=== PATIENT | female | born 1995 | race Caucasian/White ===

== ENCOUNTER 2017-07-11 15:29 | Emergency (ER) | payer OTHER ==
[2017-07-11 15:35] VITALS: BP 123/85; BMI 23.0
[2017-07-11 16:20] LABS: AMNISURE ROM TEST NO MEMBRANES RUPTURE (NO RUPTURE); BILIRUBIN,URINE NEGATIVE (NEGATIVE); BLOOD/HEMOGLOBIN,URINE 1+ (NEGATIVE); GLUCOSE, URINE NEGATIVE (NEGATIVE); KETONES,URINE NEGATIVE (NEGATIVE); LEUKOCYTE ESTERASE ,URINE 1+ (NEGATIVE); NITRITES,URINE NEGATIVE (NEGATIVE); PROTEIN,URINE 2+ (NEGATIVE); UROBILINOGEN,URINE 1+ (NORMAL)
[2017-07-11 16:21] LABS: APPEARANCE,URINE CLOUDY (CLEAR); COLOR,URINE YELLOW (YELLOW)
[2017-07-11 16:29] LABS: AMORPHOUS SEDIMENT,UR 2+ /HPF (NEGATIVE); BACTERIA,URINE 3+ /HPF (NEGATIVE); MUCUS,URINE MODERATE /HPF (NEGATIVE); RBC,URINE 0 - 4 /HPF (NEGATIVE); SQUAMOUS EPITHELIAL CELL,UR NUMEROUS /HPF (NEGATIVE)
[2017-07-11] MEDS ORDERED: NS 1000 ML 1,000 ML ONE (16:56)
[2017-07-11 17:05] LABS: BILIRUBIN,URINE NEGATIVE (NEGATIVE); BLOOD/HEMOGLOBIN,URINE NEGATIVE (NEGATIVE); GLUCOSE, URINE NEGATIVE (NEGATIVE); KETONES,URINE NEGATIVE (NEGATIVE); LEUKOCYTE ESTERASE ,URINE NEGATIVE (NEGATIVE); NITRITES,URINE NEGATIVE (NEGATIVE); PROTEIN,URINE NEGATIVE (NEGATIVE); UROBILINOGEN,URINE NORMAL (NORMAL)
[2017-07-11] MEDS ORDERED: NS 1000 ML 1,000 ML IV ONE (17:05)
[2017-07-11 17:14] LABS: APPEARANCE,URINE SLIGHTLY HAZY (CLEAR); COLOR,URINE YELLOW (YELLOW)
[2017-07-11 17:27] LABS: AMORPHOUS SEDIMENT,UR TRACE /HPF (NEGATIVE); BACTERIA,URINE TRACE /HPF (NEGATIVE); HYALINE CASTS, URINE RARE /LPF (NEGATIVE); RBC,URINE RARE /HPF (NEGATIVE); SQUAMOUS EPITHELIAL CELL,UR FEW /HPF (NEGATIVE)
--- NOTE | 2017-07-13 12:48 | DR.PREG ---
HPI - PCP Primary Care Physician: NAKUL - Chief Complaint Chief Complaint:: CONTRACTIONS - Source History Provided: Patient - Mode of Arrival Mode of Arrival: Ambulatory - Timing Onset of Chief Complaint: 07/11/17 PMH - PMH Past Medical History: Yes Past Medical History Comment: MISCARRIAGE AT 18 WEEKS WITH PRIOR Past Surgical History: Yes Past Surgical History Comment: ORAL SURGERY - Family History History of Family Medical Conditions: No Family Medical History: Coronary Artery Disease - Social History Does patient currently use any type of tobacco product: No Have you used tobacco products in the last 12 months: No Type of Tobacco Use: None Does any household member use tobacco: No Alcohol Use: None Do you use any recreational Drugs:: No Lives With: Family Lives Where: Home - infectious screening In the last 2 months have you had wt loss of >10#?: NO Have you had fever, night sweats or hemotysis?: No Have you traveled outside the country in the last 6 months?: No Isolation: Standard PE - Vital Signs Vitals: Temperature 98.2 F Pulse Rate 100 Respiratory Rate 20 Blood Pressure [Left Arm] 132/77 Blood Pressure 123/85 O2 Sat by Pulse Oximetry 98 ROR - Labs Reviewed Laboratory: Specimen Type Clean catch urine 07/11/17 16:53 Urine Color Yellow (YELLOW) 07/11/17 16:53 Urine Appearance Slightly hazy (CLEAR) 07/11/17 16:53 Urine pH 7.0 (5.0 - 8.0) 07/11/17 16:53 Ur Specific [place] 1.005 (1.000-1.030) 07/11/17 16:53 Urine Protein Negative (NEGATIVE) 07/11/17 16:53 Urine Glucose (UA) Negative (NEGATIVE) 07/11/17 16:53 Urine Ketones Negative (NEGATIVE) 07/11/17 16:53 Urine Occult Blood Negative (NEGATIVE) 07/11/17 16:53 Urine Nitrite Negative (NEGATIVE) 07/11/17 16:53 Urine Bilirubin Negative (NEGATIVE) 07/11/17 16:53 Urine Urobilinogen Normal (NORMAL) 07/11/17 16:53 Ur Leukocyte Esterase Negative (NEGATIVE) 07/11/17 16:53 Urine RBC Rare /HPF (NEGATIVE) 07/11/17 16:53 Urine WBC 0 - 2 /HPF (NEGATIVE) 07/11/17 16:53 Ur Squamous Epith Cells Few /HPF (NEGATIVE) 07/11/17 16:53 Amorphous Sediment Trace /HPF (NEGATIVE) 07/11/17 16:53 Urine Bacteria Trace /HPF (NEGATIVE) 07/11/17 16:53 Hyaline Casts Rare /LPF (NEGATIVE) 07/11/17 16:53 Urine Mucus Moderate /HPF (NEGATIVE) 07/11/17 15:35 Ur Culture Indicated? No/not indicated 07/11/17 16:53 Placental [id number] No membranes rupture (NO RUPTURE) 07/11/17 15:35 - Discharge Plan Disposition: 01 HOME, SELF-CARE Condition: Stable Prescriptions: Nitrofurantoin Macro [Macrobid Cap 100 mg Ext Rel] 100 mg PO BID #14 cap - Follow ups/Referrals Follow ups/Referrals: Jose Thompson [Primary Care Provider] - 3 days - Instructions Instructions: Victor Manuel Kowalski Contractions, and Urinary Tract Infection , Abdominal Pain During Additional Instructions: RETURN TO ER IN [place] IF CONTRACTIONS ARE GREATER THAN 6 PER HOUR OR INCREASE IN PAIN. RETURN TO ER IF WATER BREAKS OR BLEEDING OCCURS. MAINTAIN PELVIC REST AND KEEP FOLLOW UP APPOINTMENTS WITH DR. THOMPSON AND HOME HEALTH NURSES.
== END 2017-07-11 17:53 | disposition home or self-care (01) ==
LOC: ER 15:45
DX: O60.02 Preterm labor without delivery, second trimester (principal)
CPT/HCPCS: 81001; 84112; 96365; 99284

== ENCOUNTER 2017-08-30 01:38 | Emergency (ER) | payer OTHER ==
[2017-08-30 01:54] VITALS: BMI 25.2
[2017-08-30 02:37] LABS: APPEARANCE,URINE CLEAR (CLEAR); BLOOD/HEMOGLOBIN,URINE NEGATIVE (NEGATIVE); COLOR,URINE YELLOW (YELLOW); GLUCOSE, URINE NEGATIVE (NEGATIVE); KETONES,URINE NEGATIVE (NEGATIVE); NITRITES,URINE NEGATIVE (NEGATIVE); PROTEIN,URINE NEGATIVE (NEGATIVE)
[2017-08-30 02:38] LABS: BACTERIA,URINE TRACE /HPF (NEGATIVE); BILIRUBIN,URINE NEGATIVE (NEGATIVE); LEUKOCYTE ESTERASE ,URINE NEGATIVE (NEGATIVE); RBC,URINE 0-3 /HPF (NEGATIVE); SQUAMOUS EPITHELIAL CELL,UR FEW /HPF (NEGATIVE); UROBILINOGEN,URINE NORMAL (NORMAL)
[2017-08-30 03:54] VITALS: BP 104/62
--- NOTE | 2017-08-31 11:05 | DR.PREG ---
HPI - PCP Primary Care Physician: NAKUL - Chief Complaint Chief Complaint:: PT STATES" I'M HAVING CONTRACTIONS 4 IN AND HOUR MY DOCTOR IS DR. THOMPSON BUT I DON'T HAVE A WAY TO GET TO [place]" - Source History Provided: Patient - Mode of Arrival Mode of Arrival: Ambulatory - Timing Onset of Chief Complaint: 08/29/17 PMH - PMH Past Medical History: No Past Surgical History: Yes Past Surgical History Comment: WISDOM TEETH - Family History History of Family Medical Conditions: Yes Family Medical History: Coronary Artery Disease - Social History Does any household member use tobacco: No Alcohol Use: None Do you use any recreational Drugs:: No Lives With: Family Lives Where: Assisted Care - infectious screening In the last 2 months have you had wt loss of >10#?: NO Have you had fever, night sweats or hemotysis?: No Have you traveled outside the country in the last 6 months?: No Isolation: Standard PE - Vital Signs Vitals: Temperature 98.6 F Pulse Rate [Left Radial] 69 Pulse Rate 76 Respiratory Rate 16 Blood Pressure [Left Arm] 104/62 Blood Pressure 126/75 O2 Sat by Pulse Oximetry 100 ROR - Labs Reviewed Laboratory: Specimen Type Clean catch urine 08/30/17 01:57 Urine Color Yellow (YELLOW) 08/30/17 01:57 Urine Appearance Clear (CLEAR) 08/30/17 01:57 Urine pH 7.0 (5.0 - 8.0) 08/30/17 01:57 Ur Specific [place] 1.005 (1.000-1.030) 08/30/17 01:57 Urine Protein Negative (NEGATIVE) 08/30/17 01:57 Urine Glucose (UA) Negative (NEGATIVE) 08/30/17 01:57 Urine Ketones Negative (NEGATIVE) 08/30/17 01:57 Urine Occult Blood Negative (NEGATIVE) 08/30/17 01:57 Urine Nitrite Negative (NEGATIVE) 08/30/17 01:57 Urine Bilirubin Negative (NEGATIVE) 08/30/17 01:57 Urine Urobilinogen Normal (NORMAL) 08/30/17 01:57 Ur Leukocyte Esterase Negative (NEGATIVE) 08/30/17 01:57 Urine RBC 0-3 /HPF (NEGATIVE) 08/30/17 01:57 Urine WBC 0-3 /HPF (NEGATIVE) 08/30/17 01:57 Ur Squamous Epith Cells Few /HPF (NEGATIVE) 08/30/17 01:57 Urine Bacteria Trace /HPF (NEGATIVE) 08/30/17 01:57 Ur Culture Indicated? No/not indicated 08/30/17 01:57 - Discharge Plan Disposition: HOME, SELF-CARE Condition: Stable - Follow ups/Referrals Follow ups/Referrals: Jose Thompson [Primary Care Provider] - 3 days - Instructions Instructions: Third Trimester of , [id number] Additional Instructions: FOLLOW UP WITH THIS AM. Return to ER for bright red vaginal bleeding, spontaneous rupture of membranes, decrease in movement, increase in pain. Pelvic rest for 1 week.
== END 2017-08-30 03:47 | disposition home or self-care (01) ==
LOC: ER 01:38
DX: O60.03 Preterm labor without delivery, third trimester (principal)
CPT/HCPCS: 81001; 99284